=== PATIENT | female | born 1945 | race Caucasian/White ===

== ENCOUNTER 2024-02-13 19:07 | Inpatient (IN) | payer MEDICARE ==
[~2024-02-13] VITALS: Ht 157.5 cm; Wt 63.8 kg
[2024-02-13 19:33] LABS: BASOPHILS ABSOLUTE AUTO 0.05 K/mm3 (0.00-0.23); BASOPHILS PERCENT AUTO 0 % (0-2); EOSINOPHILS ABSOLUTE AUTO 0.01 K/mm3 (0.00-0.68); EOSINOPHILS PERCENT AUTO 0 % (0-6); Hematocrit 32.8 % (33.0-51.0); Hemoglobin 10.9 g/dL (11.5-16.0); IMMATURE GRAN ABSOLUTE AUTO 0.15 K/mm3 (0.00-0.10); IMMATURE GRAN PERCENT AUTO 1 % (0-1); LYMPHOCYTES ABSOLUTE AUTO 1.24 K/mm3 (0.84-5.20); LYMPHOCYTES PERCENT AUTO 9 % (21-46); MONOCYTES ABSOLUTE AUTO 0.57 K/mm3 (0.16-1.47); MONOCYTES PERCENT AUTO 4 % (4-13); Mean Corpuscular HGB 29.9 pg (26.0-34.0); Mean Corpuscular HGB Conc 33.2 g/dL (31.5-36.5); Mean Corpuscular Volume 90 fL (80-100); Mean Platelet Volume 9.3 fL (9.1-12.4); NEUTROPHILS ABSOLUTE AUTO 11.64 K/mm3 (1.96-9.15); NEUTROPHILS PERCENT AUTO 85 % (41-73); Platelet Count 260 K/mm3 (150-400); RDW Coefficient Variation 14.8 % (11.7-14.2); RDW Standard Deviation 48.9 fL (35.1-46.3); Red Blood Cell Count 3.65 M/mm3 (3.80-5.20); White Blood Cell Count 13.66 K/mm3 (4.00-11.30)
[2024-02-13 19:59] LABS: Albumin/Globulin Ratio 0.8 (0.8-1.8); Bilirubin, Total 0.5 mg/dL (0.1-1.0); Bun/Creatinine Ratio 8.8 (12.0-20.0); Creatinine, Blood 11.9 mg/dL (0.40-1.00); Potassium, Blood 6.8 mmol/L (3.5-5.5)
[2024-02-13 20:58] LABS: Source, Urine Straight Cath
[2024-02-13 21:03] LABS: Appearance, Urine Hazy (Clear); Bilirubin, Urine Neg (Neg); Blood, Urine 5+ (Neg); Color, Urine Yellow (P-Yellow); Glucose Qualitative, Urine Neg (Neg); Ketones, Urine Neg (Neg); Leukocyte Esterase, Urine 1+ (Neg); Nitrite, Urine Neg (Neg); Protein, Urine 3+ (Neg); Specific Gravity, Urine 1.015 (1.003-1.022); Urobilinogen, Urine NORM (Normal)
[2024-02-13 21:08] LABS: Amorphous Light (0-Heavy); Bacteria Few /hpf; Renal Epithelial Rare /hpf (0-Rare); Squamous Epithelial Cells Few /hpf (Few)
[2024-02-13] MEDS ORDERED: NS 1,000 ML IV SCH ×2 (22:25→23:09)
[2024-02-13] MEDS ORDERED: CefTRIAXone Sodium 1,000 MG in NS 50 ML IV ONE (22:25)
[2024-02-13] MEDS ORDERED: Ondansetron HCl 2 MG / ML 2ML Vial IV ONE (22:45)
[2024-02-13] MEDS ORDERED: Dextrose 50% 50 ML Syringe IV ONE ×2 (22:50→23:00)
[2024-02-13] MEDS ORDERED: Sodium Bicarb 8.4% Inj 150 MEQ in Dextrose 5% 1,000 ML IV SCH (22:55)
[2024-02-13] MEDS ORDERED: CALCIUM GLUC IN NACL, ISO-OSM 50 ML IV ONE (22:55)
[2024-02-13] MEDS ORDERED: Insulin Regular 100 Unit/ML 1ML Dose IV ONE (23:00)
[2024-02-13] MEDS ORDERED: Sodium Zirconium Cyclosilicate 10 GM Packet PO SCH (23:00)
[2024-02-13 23:30] VITALS: BP 125/52
[2024-02-13 23:45] VITALS: BP 95/38
[2024-02-13 23:50] VITALS: BP 95/40
[2024-02-14] VITALS (42 sets, daily range): BP systolic 81–140; BP diastolic 40–95
[2024-02-14 00:04] LABS: Calcium, Blood 8.9 mg/dL (8.5-10.1); Potassium, Blood 7.1 mmol/L (3.5-5.5)
[2024-02-14] MEDS ORDERED: Sodium Zirconium Cyclosilicate 10 GM Packet PO ONE (01:00)
[2024-02-14] MEDS ORDERED: Sodium Bicarb 8.4% 1 MEQ/ML 50 ML Vial IV ONE (01:00)
[2024-02-14 02:57] LABS: Albumin, Blood 2.3 g/dL (3.4-5.0); Anion Gap 22 mmol/L (3-11); Blood Urea Nitrogen 102 mg/dL (8-24); Bun/Creatinine Ratio 9.4 (12.0-20.0); CO2, Blood 18 mmol/L (21-32); Calcium, Blood 8.1 mg/dL (8.5-10.1); Chloride, Blood 100 mmol/L (98-108); Glomerular Filtration Rate 3 (60-); Glucose, Blood 142 mg/dL (70-99); Phosphorus, Blood 6.5 mg/dL (2.5-4.9); Potassium, Blood 6.1 mmol/L (3.5-5.5); Sodium, Blood 134 mmol/L (136-145)
--- NOTE | 2024-02-14 03:25 | NUR ---
ARRIVAL TO ICU PT ARRIVED TO ICU 2350 VIA ED BED AND TRANSFERED OVER TO ICU BED VIA SLIDE SHEET. SHE IS A/O X4 AND ABLE TO MAKE HER NEEDS KNOWN; LETHARGIC AND EASILY FALLS ALSEEP. SPO2 >96% ON RA. HR 70'S SINUS ARRHYTHMIA. SBP 120'S WITH MAP 65-70. DR KILGORE CALLED AND WAS GIVEN AN UPDATE ON LABS; NEW ORDERS PROVIDED. BICARB INFUSING AT 150ML/HR. SEE ADMISSION ASSESSMENT FOR FULL ASSESSMENT.
[2024-02-14 04:59] LABS: Albumin, Blood 2.5 g/dL (3.4-5.0); Anion Gap 23 mmol/L (3-11); Blood Urea Nitrogen 105 mg/dL (8-24); Bun/Creatinine Ratio 9.8 (12.0-20.0); CO2, Blood 17 mmol/L (21-32); Calcium, Blood 8.4 mg/dL (8.5-10.1); Chloride, Blood 100 mmol/L (98-108); Glomerular Filtration Rate 3 (60-); Glucose, Blood 150 mg/dL (70-99); Phosphorus, Blood 6.8 mg/dL (2.5-4.9); Potassium, Blood 5.8 mmol/L (3.5-5.5); Sodium, Blood 134 mmol/L (136-145)
[2024-02-14] MEDS ORDERED: Sodium Bicarb 8.4% Inj 150 MEQ in Dextrose 5% 1,000 ML IV SCH (06:35)
--- NOTE | 2024-02-14 07:06 | NUR ---
END OF SHIFT SUMMARY NO ACUTE EVENTS OVERNIGHT. PT CONT TO BE A/O X4 AND ABLE TO MAKE HER NEEDS KNOWN; VERY LITTLE AMOUNT OF SLEEP. SPO2 >95% ON RA. AFEBRILE. HR 70-80'S. SBP 110-120'S WHILE AWAKE WITH MAP >65. TOLERATING PO WATER WELL. NO URINE OUTPUT SINCE ARRIVAL TO ICU. DR KILGORE AT BEDSIDE AND PROVIDED NEW ORDERS. BICARB INFUSING AT 125ML/HR. REPORT GIVEN TO AM RN.
[2024-02-14] MEDS ORDERED: NS 500 ML IV ONE (08:50)
[2024-02-14] MEDS ORDERED: CefTRIAXone Sodium 1,000 MG in NS 100 ML IV SCH (10:00)
[2024-02-14 13:42] LABS: Albumin, Blood 2.3 g/dL (3.4-5.0); Anion Gap 18 mmol/L (3-11); Blood Urea Nitrogen 100 mg/dL (8-24); Bun/Creatinine Ratio 9.4 (12.0-20.0); CO2, Blood 22 mmol/L (21-32); Calcium, Blood 7.9 mg/dL (8.5-10.1); Chloride, Blood 97 mmol/L (98-108); Glomerular Filtration Rate 3 (60-); Glucose, Blood 168 mg/dL (70-99); Phosphorus, Blood 5.7 mg/dL (2.5-4.9); Sodium, Blood 132 mmol/L (136-145)
[2024-02-14] MEDS ORDERED: DEXTROMETHORPHAN/BENZOCAINE 1 EACH LOZENGE MT PRN (14:00)
[2024-02-14 15:37] LABS: Adenovirus Not Detected (NOT DETECT); Bordetella pertussis Not Detected (NOT DETECT); Chlamydophila pneumoniae Not Detected (NOT DETECT); Coronavirus 229E Not Detected (NOT DETECT); Coronavirus HKU1 Not Detected (NOT DETECT); Coronavirus NL63 Not Detected (NOT DETECT); Coronavirus OC43 Not Detected (NOT DETECT); Human Metapneumovirus Not Detected (NOT DETECT); Human Rhinovirus/Enterovirus Not Detected (NOT DETECT); Influenza A/2009-H1 Not Detected (NOT DETECT); Influenza A/H1 Not Detected (NOT DETECT); Influenza A/H3 Not Detected (NOT DETECT); Influenza B Not Detected (NOT DETECT); Mycoplasma pneumoniae Not Detected (NOT DETECT); Parainfluenza Virus 1 Not Detected (NOT DETECT); Parainfluenza Virus 2 Not Detected (NOT DETECT); Parainfluenza Virus 3 Not Detected (NOT DETECT); Parainfluenza Virus 4 Not Detected (NOT DETECT); Respiratory Syncytial Virus Not Detected (NOT DETECT); SARS-Cov-2 (COVID-19), BioFire Not Detected (NOT DETECT)
--- NOTE | 2024-02-14 16:44 | NUR ---
SHIFT SUMMARY NO ACUTE CHANGES THIS SHIFT. PT HAS REMAINED ALERT AND ORIENTED WHEN AWAKE. PT RESTING QUIETLY AT TIMES THIS AFTERNOON. PT HAS DENIED PAIN OR DISCOMFORT. PT HAS COMPLAINED OF A SORE THROAT. VITAL SIGNS HAVE REMAINED STABLE. PT ON ROOM AIR. BICARB GTT INFUSING AT 125 ML/HR. PT HAS NOT FELT THE URGE TO VOID THIS SHIFT. MULTIPLE FAMILY MEMBERS AT BEDSIDE THROUGHOUT THE DAY. WILL CONTINUE TO MONITOR AND REPORT OFF TO ONCOMING RN.
--- NOTE | 2024-02-14 21:08 | NUR ---
ASSUMED CARE PT IS A&O X4; SPO2 >92% ON 2LNC; MAP >65. PT DENIES CP AND NAUSEA. PT INITIALLY COMPLAINED OF MILD SOB, BUT HAS RESOLVED W/ APPLICATION OF 2LNC. PT STATED THAT SHE HAS BEEN TOLD SHE HAS COPD; USES OXYGEN AT HOME WHILE SLEEPING. PT STATES ONLY COMPLAINT AT THIS TIME IS FATIGUE. HAS NOT MADE ANY URINE AT TIME OF THIS NOTE. RESTING QUIETLY.
[2024-02-14] MEDS ORDERED: GLUCOPHAGE1000 M1 PO (22:02)
[2024-02-14] MEDS ORDERED: CLOP75 PO (22:02)
[2024-02-14] MEDS ORDERED: LISI5 PO (22:03)
[2024-02-14] MEDS ORDERED: ROSUVASTATIN CA40 MG PO (22:04)
[2024-02-14] MEDS ORDERED: AMLO5 PO (22:05)
[2024-02-14] MEDS ORDERED: ALLO100 PO (22:05)
[2024-02-14] MEDS ORDERED: EZET10 PO (22:06)
[2024-02-14] MEDS ORDERED: CALCIUM 600 MG1 EA18 PO (22:07)
[2024-02-14] MEDS ORDERED: FISH OIL 1,0001 EA10 PO (22:07)
[2024-02-14] MEDS ORDERED: MAGNESIUM OXID500 MG PO (22:08)
[2024-02-14] MEDS ORDERED: VITAMIN D5000 UNIT PO (22:08)
[2024-02-14 22:17] LABS: Albumin, Blood 2.4 g/dL (3.4-5.0); Anion Gap 16 mmol/L (3-11); Blood Urea Nitrogen 100 mg/dL (8-24); Bun/Creatinine Ratio 9.1 (12.0-20.0); CO2, Blood 27 mmol/L (21-32); Calcium, Blood 7.7 mg/dL (8.5-10.1); Chloride, Blood 93 mmol/L (98-108); Glomerular Filtration Rate 3 (60-); Glucose, Blood 171 mg/dL (70-99); Phosphorus, Blood 5.4 mg/dL (2.5-4.9); Potassium, Blood 4.6 mmol/L (3.5-5.5); Sodium, Blood 131 mmol/L (136-145)
[2024-02-14] MEDS ORDERED: NS 1,000 ML IV SCH (22:25)
[2024-02-14 22:46] LABS: Source, Urine Foley catheter
--- NOTE | 2024-02-14 22:56 | NUR ---
UPDATE DR KILGORE CALLED W/ ORDERS FOR ESPINOSA INSERTION AND CHANGE FLUIDS FROM SODIUM BICARB TO NORMAL SALINE INFUSION. NO OTHER ORDERS AT THIS TIME.
[2024-02-14 23:20] LABS: Appearance, Urine Clear (Clear); Bilirubin, Urine Neg (Neg); Blood, Urine 5+ (Neg); Color, Urine Amber (P-Yellow); Glucose Qualitative, Urine 1+ (Neg); Ketones, Urine Neg (Neg); Leukocyte Esterase, Urine Neg (Neg); Nitrite, Urine Neg (Neg); Protein, Urine 3+ (Neg); Urobilinogen, Urine NORM (Normal)
[2024-02-15] VITALS (9 sets, daily range): BP systolic 78–143; BP diastolic 49–71
[2024-02-15 00:32] LABS: Amorphous Light (0-Heavy); Bacteria Few /hpf; Red Blood Cells, Urine 0-2 /hpf (0-2); Squamous Epithelial Cells Few /hpf (Few); White Blood Cells, Urine 0-2 /hpf (0-5)
[2024-02-15 03:56] LABS: Hematocrit 26.6 % (33.0-51.0); Hemoglobin 9.2 g/dL (11.5-16.0)
[2024-02-15 04:40] LABS: Magnesium, Blood 2.9 mg/dL (1.6-2.4); Uric Acid, Blood 5.8 mg/dL (2.6-6.0)
[2024-02-15 04:53] LABS: Albumin, Blood 2.4 g/dL (3.4-5.0); Anion Gap 15 mmol/L (3-11); Blood Urea Nitrogen 104 mg/dL (8-24); Bun/Creatinine Ratio 9.5 (12.0-20.0); CO2, Blood 28 mmol/L (21-32); Calcium, Blood 7.6 mg/dL (8.5-10.1); Chloride, Blood 94 mmol/L (98-108); Glomerular Filtration Rate 3 (60-); Glucose, Blood 98 mg/dL (70-99); Phosphorus, Blood 5.5 mg/dL (2.5-4.9); Potassium, Blood 4.7 mmol/L (3.5-5.5); Sodium, Blood 132 mmol/L (136-145)
--- NOTE | 2024-02-15 05:15 | NUR ---
SHIFT SUMMARY PT RESTED/SLEPT QUIETLY T/O NIGHT. NO NEW COMPLAINTS FROM PT. EARLIER IN NIGHT LIFT WAS USED TO ASSIST PT TO BEDSIDE COMMODE; WAS ABLE TO STAND AND PIVOT TO BED WITH WALKER AFTER. NO ACUTE EVENTS OVERNIGHT.
--- NOTE | 2024-02-15 06:24 | NUR ---
UPDATE PT TO BE MOVED TO U 11. DAUGHTER BIRGIT NOTIFIED (W/ PT'S PERMISSION); BIRGIT STATED SHE WILL NOTIFY SON ESTEBAN.
--- NOTE | 2024-02-15 06:46 | NUR ---
SHIFT SUMMARY REPORT GIVEN TO PCU NURSE AND PT TRANSFERRED W/ MEDS AND BELONGINGS.
[2024-02-15] MEDS ORDERED: Sodium Bicarb 8.4% Inj 150 MEQ in Dextrose 5% 1,000 ML IV SCH (07:00)
[2024-02-15] MEDS ORDERED: HYDROCODONE-AC1 EA19 PO (07:36)
[2024-02-15] MEDS ORDERED: Cyclobenzaprine5 MG PO (07:37)
[2024-02-15] MEDS ORDERED: HYDROcodone 5-APAP 325 TAB PO PRN (09:50)
[2024-02-15] MEDS ORDERED: Ondansetron HCl 2 MG / ML 2ML Vial IV PRN (09:50)
[2024-02-15] MEDS ORDERED: Allopurinol 100 MG Tab PO SCH (10:00)
[2024-02-15] MEDS ORDERED: Clopidogrel Bisulfate 75 MG Tab PO SCH (10:00)
[2024-02-15] MEDS ORDERED: Insulin Human Lispro 100 Units/ML 3ML Syringe SC SCH (11:30)
--- NOTE | 2024-02-15 15:55 | NUR ---
ASSUMPTION OF CARE AND TRANSFER TO MEDICAL UNIT: ASSUMED CARE OF PATIENT AT 1255. PATIENT DENIED PAIN THROUGHOUT THE TIME WITH THIS RN. PATIENT ALERT AND ORIENTED X4. NO SLURRING OF SPEECH NOTED. PATIENT FOLLOWING DIRECTIONS AND CONVERSING NORMALLY WITH HER FAMILY. ESPINOSA IN PLACE AND DRAINING ERROL COLORED URINE. ESPINOSA AND 24 HOUR COLLECTION JUG ON ICE. PATIENT DENIED NAUSEA FROM ASSUMPTION OF CARE TO TRANSFER TO MEDICAL. VITALS STABLE WITH MAPS >65. ABLE TO TITRATE O2 DOWN TO 1.5L VIA NC. REPORT CALLED TO MEDICAL FLOOR. FAMILY AWARE OF TRANSFER. ALL QUESTIONS AND CONCERNS ADDRESSED. PATIENT TRANSFERED TO ROOM 332 WITH COATING MIXER TENDER. PATIENT STABLE AT TIME OF TRANSFER.
[2024-02-15] MEDS ORDERED: Darbepoetin Alfa in Polysorbat 25 MCG/0.42 ML Syringe SC SCH (16:00)
--- NOTE | 2024-02-15 16:45 | NUR ---
TRANSFERRED NOTE: PATIENT ARRIVES TO ROOM VIA BED AT 1600 FROM PCU RM 11. PATIENT A/OX4, ANSWER TO QUESTIONS APPROPRIATELY AND ABLE TO MAKE NEEDS KNOWN. PATIENT ORIENTATED TO ROOM AND CALL SYSTEM. SKIN ASSESSMENT c 2 RN'S VERIFIED COMPLETED. PATIENT DENIES CP/PRESSURE, N/V, DIZZINESS AND GENERALIZED PAIN, WHEN ASKED AT THIS TIME. PATIENT ON TELE, SR c OCCASIONAL PAC, HR AT 79 BPM. PATIENT SKIN TIGHT DEPENDENT GENERALIZED EDEMA FROM ABDOMEN DOWN TO KNEE, BELOW KNEE TO FEET PLUS 2, PLUS 1 TO R ARM AND TRACES OF EDEMA TO L ARM. SCD'S TO BLE'S IN PLACED. PATIENT AT BASELINE WEARS 2L O2 AT HS, CURRENTLY ON 2L c SPO2 95-96%. PATIENT HAS PIV TO R FOREARM INFUSING SODIUM BICARB AT 50 MLS/HR. PATIENT HAS ESPINOSA, PATENT DRAINING ERROL COLOR URINE TO GRAVITY, ESPINOSA BAG SOAKED IN ICE FOR 24 HR. URINE COLLECTION AND NEEDED TO BE TURN IN AT 2200 02/15/24. PATIENT REPOSITIONED TO R SIDE, BLE ELEVATED ON PILLOWS. PATIENT HAS NO COMPLAINTS OR DENIES NEW CONCERNED AT THIS TIME. CALL LIGHT IN REACH.
[2024-02-15 19:15] LABS: Albumin, Blood 2.1 g/dL (3.4-5.0); Anion Gap 18 mmol/L (3-11); Blood Urea Nitrogen 100 mg/dL (8-24); Bun/Creatinine Ratio 8.6 (12.0-20.0); CO2, Blood 28 mmol/L (21-32); Calcium, Blood 6.9 mg/dL (8.5-10.1); Chloride, Blood 90 mmol/L (98-108); Glomerular Filtration Rate 3 (60-); Glucose, Blood 114 mg/dL (70-99); Phosphorus, Blood 5.7 mg/dL (2.5-4.9); Potassium, Blood 4.5 mmol/L (3.5-5.5); Sodium, Blood 131 mmol/L (136-145)
[2024-02-15] MEDS ORDERED: Ezetimibe 10 MG Tab PO SCH (21:00)
[2024-02-15 23:59] LABS: Protein, Urine Quantitative 300.2 mg/dL (0.0-11.9)
[2024-02-16] VITALS (11 sets, daily range): BP systolic 108–141; BP diastolic 51–73
--- NOTE | 2024-02-16 04:24 | NUR ---
SHIFT SUMMARY PT.HAS INDWELLING ESPINOSA, 24URINE COMPLETED BEFORE 2300 AND SENT TO LAB. PT.DENIES N/V OR DISCOMFORT. CB.TELE;SINUS 83.CRITICAL LAB CRE:11.60 RECEIVED FROM LAB AT -NOTIFIED OVER THE PHONE BY THIS NURSE.PT.HAS LE AND ABDOMINAL AREA EDEMA +1-2. PT.DENIES ANY PAIN OR SOB, 02 VIA NC 2L @100% SAT'S. NO ACUTE DISTRESS/EVENTS DURING THIS SHIFT.WILL HANDOFF TO THE INCOMING SHIFT NURSE. BED AT LOWEST POSITION, CALL LIGHT IN REACH.
[2024-02-16] MEDS ORDERED: Sodium Bicarb 8.4% Inj 150 MEQ in Dextrose 5% 1,000 ML IV SCH (05:35)
[2024-02-16] MEDS ORDERED: Bumetanide 0.25 MG/ML 10ML Vial IV ONE ×2 (06:25→08:25)
--- NOTE | 2024-02-16 06:29 | NUR ---
PER 'S VERBAL ORDER: "BUMEX 2MG IV NOW, REPEAT DOSE IN TWO HOURS." ORDER ENTERED BY THIS NURSE. DR. KILGORE BY BEDSIDE.
[2024-02-16 06:53] LABS: Hematocrit 27.8 % (33.0-51.0); Hemoglobin 9.7 g/dL (11.5-16.0)
[2024-02-16 07:25] LABS: Magnesium, Blood 2.7 mg/dL (1.6-2.4)
[2024-02-16 07:29] LABS: Albumin, Blood 2.2 g/dL (3.4-5.0); Anion Gap 13 mmol/L (3-11); Blood Urea Nitrogen 100 mg/dL (8-24); CO2, Blood 32 mmol/L (21-32); Calcium, Blood 6.7 mg/dL (8.5-10.1); Chloride, Blood 88 mmol/L (98-108); Glucose, Blood 108 mg/dL (70-99); Phosphorus, Blood 5.5 mg/dL (2.5-4.9); Potassium, Blood 4.3 mmol/L (3.5-5.5); Sodium, Blood 129 mmol/L (136-145)
[2024-02-16 07:32] LABS: Bun/Creatinine Ratio 8.3 (12.0-20.0); Glomerular Filtration Rate 3 (60-)
[2024-02-16] MEDS ORDERED: Cholecalciferol 1000 Unit Tablet (=25MCG) PO SCH (09:00)
[2024-02-16] MEDS ORDERED: Docosahexanoic Acid/EPA 1,000 MG CAP PO SCH (09:00)
--- NOTE | 2024-02-16 15:06 | NUR ---
SHIFT SUMMARY PT SLEEPING AT START OF SHIFT. WOKE EASILY FOR REPORT, BUT HAS REMAINED SLEEPY AND LETHARGIC. LAB CALLED WITH CRITICAL CREATININE DURING SHIFT REPORT. DR KILGORE NOTIFIED BY [facility] RN. ORDERS PLACED FOR [facility] [place] CONSULT TO PLACE PERMA CATH FOR DIALYSIS. FAX SHEET SENT TO [facility] OFFICE AND CONSULT CALLED TO ANS; SEE CHART. PT HAS BEEN NPO SINCE ORDERS PLACED THIS AM, WAITING FOR PROCEDURE. PT'S DAUGHTER IN TO VISIT THIS AM AND RETURNED AGAIN THIS AFTERNOON. DR KILGORE NOTIFIED THIS AM REGARDING 2ND ORDER FOR 24 HR URINE. BENEFITS ADMINISTRATOR IN TO TALK WITH PT EARLIER TODAY. PT THEN DECIDING NOT TO HAVE DIALYSIS. DR KILGORE CALLED PT IN . PT THEN AGREEABLE TO CONTINUE WITH PERMA CATH PLACEMENT FOR DIALYSIS. RESTING QUIETLY WAITNG IN BED WITH DAUGHTER AT BS. CALL LT IN REACH.
[2024-02-16] MEDS ORDERED: Heparin Sodium 1000 Units/ML 10ML MDV ONE (17:58)
[2024-02-16] MEDS ORDERED: NS 250 ML IV ONE (17:58)
[2024-02-16] MEDS ORDERED: Midazolam HCl 1MG / ML 2ML Vial ONE (18:04)
[2024-02-16] MEDS ORDERED: FentaNYL Citrate 50 MCG/ML 2 ML Injection ONE (18:04)
[2024-02-16] MEDS ORDERED: NS 500 ML IV ONE (18:04)
[2024-02-16] MEDS ORDERED: Heparin Sodium 10,000 Units/ML 1ML MDV ONE ×2 (18:45→18:47)
[2024-02-17] VITALS (17 sets, daily range): BP systolic 88–149; BP diastolic 40–63
--- NOTE | 2024-02-17 05:05 | NUR ---
SHIFT SUMMARY APPROXIMATELY 1999, PT.RETURNED FROM IR AND HAS A PERMCATH ON RIGHT UPPER AREA OF THE CHEST. VS AND NEURO CHECKS COMPLETED ORDERED. PT. IS A&O X3-4, AND RESTING WELL T/O THE CLIENT ARCHITECT. SODIUM BICARB INFUSING ORDERED. 1X NORCO 5/325MG ADMINISTERED ORDERED FOR C/O 5/10WORST RIGHT UPPER AREA/ SHOULDER PAIN. PT IS ON O2@2L VIA NC, O2 SAT'S 98%. 24HR URINE COLLECTION/ESPINOSA BAG IN ICE T/O THIS SHIFT. HS B. TELE:SINUS 77. NO ACUTE DISTRESS/EVENTS T/O THIS SHIFT. BED AT THE LOWEST POSITION, CALL LIGHT IN REACH. WILL HANDOFF TO THE INCOMING SHIFT NURSE.
[2024-02-17 05:15] LABS: Hematocrit 23.5 % (33.0-51.0)
[2024-02-17 05:48] LABS: Magnesium, Blood 2.6 mg/dL (1.6-2.4)
[2024-02-17 06:03] LABS: Albumin, Blood 1.9 g/dL (3.4-5.0); Anion Gap 15 mmol/L (3-11); Blood Urea Nitrogen 112 mg/dL (8-24); CO2, Blood 32 mmol/L (21-32); Calcium, Blood 6.5 mg/dL (8.5-10.1); Chloride, Blood 86 mmol/L (98-108); Glucose, Blood 114 mg/dL (70-99); Phosphorus, Blood 6.4 mg/dL (2.5-4.9); Potassium, Blood 4.5 mmol/L (3.5-5.5); Sodium, Blood 128 mmol/L (136-145)
[2024-02-17 06:14] LABS: Bun/Creatinine Ratio 9.2 (12.0-20.0); Glomerular Filtration Rate 3 (60-)
--- NOTE | 2024-02-17 06:40 | NUR ---
CRITICAL LAB VALUE (FROM [email or web address] AT 0612. CREATININE 12.2 THIS NURSE NOTIFIED OVER THE PHONE, DR. KILGORE ASKED TO CONTACT AND SET UP DIALYSIS FOR THE PT. FOR TODAY. THIS BREAD BAKER CALLED DIALYSIS NURSE AND M @4573 TO NUMBER: [phone]. CUTTING AND PRINTING MACHINE OPERATOR NOTIFIED.
[2024-02-17] MEDS ORDERED: Anticoagulant Sod Citrate Soln 3 ML SYR INJ PRN (08:00)
[2024-02-17 09:03] LABS: Protein, Urine Quantitative 117.7 mg/dL (0.0-11.9)
--- NOTE | 2024-02-17 13:36 | NUR ---
PATIENT LEFT UNIT AT 0850 FOR DIALYSIS. AM MEDICATIONS HELD UNTIL PATIENT RETURNED AT 1145 TO ROOM.
[2024-02-17 17:11] LABS: HEPATITIS B SURFACE ANTIGEN Negative (Negative)
[2024-02-17 17:15] LABS: HEPATITIS B SURFACE ANTIBODY <3.10 IU/L
[2024-02-17 17:44] LABS: HBV CORE ANTIBODIES,TOTAL Negative (Negative)
[2024-02-17] MEDS ORDERED: FORMOTEROL20 MCG/2 M INH (17:48)
[2024-02-17] MEDS ORDERED: YUPELRI175 MCG/1 (17:48)
[2024-02-17] MEDS ORDERED: BUDE.25 INH (17:49)
[2024-02-17] MEDS ORDERED: Ipratropium/Albuterol SulF 2.5-0.5MG/3 ML Amp INH PRN (18:05)
--- NOTE | 2024-02-17 18:38 | NUR ---
SHIFT SUMMARY PATIENT WITH NO ACUTE EVENTS DURING SHIFT. SHE IS RESTING IN BED AFTER DIALYSIS BUT WAKES EASILY TO VERBAL STIMULATION. PATIENT GIVEN BED BATH AND ASSISTED UP TO EDGE OF BED. HELD UP WITH ASSISTANCE FOR APPROX 1 MINUTE. PATIENT ASSISTED BACK TO BED AND REPOSITIONED TO LEFT SIDE LYING. BED IN LOW POSITION, CALL LIGHT IN REACH PATIENT ABLE TO MAKE NEEDS KNOWN.
[2024-02-17] MEDS ORDERED: Budesonide 0.5 MG/2 ML RESP INH SCH (21:00)
[2024-02-17 21:10] LABS: GBM, IGG MULTIPLEX BEAD ASSAY 0 AU/mL (0-19); MYELOPEROXIDASE (MPO) AB,IGG 0 AU/mL (0-19); SERINE PROTEINASE 3 PR3 AB,IGG 0 AU/mL (0-19)
[2024-02-18] VITALS (16 sets, daily range): BP systolic 93–144; BP diastolic 34–64
[2024-02-18 03:57] LABS: ANA PATTERN Nuclear Dot; ANTINUCLEAR AB (ANA),HEP-2,IGG Detected (<1:80)
--- NOTE | 2024-02-18 04:57 | NUR ---
SHIFT SUMMARY NOC PT A/O X 3-4. PLEASANT AND COOPERATIVE WITH CARE. VSS. BEDTIME CBG 174 WITH CNI. PT HAS DIALYSIS PERM CATH IN [facility] THAT WAS PLACED 02/16/24 AND DRESSING C/D/I AND SITE IS WN. PT ON O2 2L/NC SPO2 >92%. PT HAD DIALYSIS YESTERDAY AND ANTICIPATING ANOTHER ROUND OF DIALYSIS TODAY. PT HGB 8.0 YESTERDAY, AWAITING AM LABS FOR ANY CHANGES. PT HAD C/O OF RUW PAIN FROM DIALYSIS CATHETER PLACEMENT, AND MEDICATED PER EMAR. PT HAS ESPINOSA IN PLACE DRAINING TO GRAVITY. ON TELE SINUS RHYTHM IN 70'S. PT CURRENTLY RESTING WITH BED IN LOWEST POSITION, AND CALL LIGHT WITHIN REACH.
[2024-02-18 05:25] LABS: Hematocrit 23.2 % (33.0-51.0); Hemoglobin 7.9 g/dL (11.5-16.0)
[2024-02-18 06:21] LABS: Magnesium, Blood 2.5 mg/dL (1.6-2.4)
[2024-02-18 06:32] LABS: GBM, IGG MULTIPLEX BEAD ASSAY 0 AU/mL (0-19)
[2024-02-18 06:32] LABS: MYELOPEROXIDASE (MPO) AB,IGG 0 AU/mL (0-19); SERINE PROTEINASE 3 PR3 AB,IGG 0 AU/mL (0-19)
[2024-02-18 06:35] LABS: Albumin, Blood 1.9 g/dL (3.4-5.0); Anion Gap 12 mmol/L (3-11); Blood Urea Nitrogen 73 mg/dL (8-24); Bun/Creatinine Ratio 7.9 (12.0-20.0); CO2, Blood 32 mmol/L (21-32); Calcium, Blood 6.6 mg/dL (8.5-10.1); Chloride, Blood 93 mmol/L (98-108); Glomerular Filtration Rate 4 (60-); Glucose, Blood 128 mg/dL (70-99); Sodium, Blood 133 mmol/L (136-145)
[2024-02-18 15:35] LABS: ANA PATTERN Nuclear Dot; ANTINUCLEAR AB (ANA),HEP-2,IGG Detected (<1:80)
--- NOTE | 2024-02-18 17:54 | NUR ---
SHIFT SUMMARY PATIENT ALERT AND INTERACTIVE. PATIENT TAKEN TO DIALYSIS VIA BED THIS MORNING. PATIENT RETURNED FROM DIALYSIS VIA BED. PATIENT WANTING TO GET UP TO HAVE A BM. PATIENT STOOD AT SIDE OF BED, THEN REFUSED TO TRANSFER TO THE COMMODE BECAUSE SHE SAID HER CALVES HURT. PATIENT REQUESTING TO USE BED ANTHONY. PATIENT ENCOURAGED TO MOBILIZE. PATIENT REFUSING AND STATING THAT SHE JUST CAN'T. PT TO EVALUATE PATIENT. PATIENT MEDICATED X1 FOR SHOULDER PAIN DURING DIALYSIS.
[2024-02-19] VITALS (14 sets, daily range): BP systolic 110–188; BP diastolic 57–83
--- NOTE | 2024-02-19 05:11 | NUR ---
SHIFT SUMMARY NOC PT A/O X 4. PLEASANT AND COOPERATIVE WITH CARE. VSS. PT SLEPT FOR MAJORITY OF SHIFT. PT HAD DIALYSIS LAST 2 DAYS. PROBABLE DIALYSIS TREATMENT TODAY. PT HAS DIALYSIS PERM CATH IN [facility] PLACED 3 DAYS AGO. PT HAS ESPINOSA IN PLACE DRAINING TO GRAVITY. ON TELE SINUS RHYTHM IN 80'S. PER DAY RN REPORT PT RECOMMENDED TO GO TO SNF FOR REHAB, BUT FAMILY WANT PT TO GO HOME WITH HOME HEALTH. PT EVENING ZETIA HELD DUE TO PT BEING TOO SOMNULENT FOR SAFE RX ADMINISTRATION. HGB 7.9 YESTERDAY, AWAITING AM LABS FOR POSSIBLE TRANSFUSION THRESHOLD TO BE MET. PT ON 2L/NC SPO2 >92%. PT CURRENTLY RESTING WITH BED IN LOWEST POSITION, AND CALL LIGHT WITHIN REACH.
[2024-02-19 05:26] LABS: Hemoglobin 8.3 g/dL (11.5-16.0)
[2024-02-19 05:56] LABS: Albumin, Blood 2.1 g/dL (3.4-5.0); Anion Gap 9 mmol/L (3-11); Blood Urea Nitrogen 44 mg/dL (8-24); Bun/Creatinine Ratio 7.2 (12.0-20.0); CO2, Blood 33 mmol/L (21-32); Calcium, Blood 7.1 mg/dL (8.5-10.1); Chloride, Blood 99 mmol/L (98-108); Glomerular Filtration Rate 7 (60-); Glucose, Blood 119 mg/dL (70-99); Magnesium, Blood 2.3 mg/dL (1.6-2.4); Phosphorus, Blood 2.8 mg/dL (2.5-4.9); Potassium, Blood 3.7 mmol/L (3.5-5.5); Sodium, Blood 137 mmol/L (136-145)
[2024-02-19] MEDS ORDERED: Polyethylene Glycol 3350 17 gm PO PRN (14:10)
[2024-02-19] MEDS ORDERED: Docusate Sodium 100 MG Cap PO SCH (15:00)
--- NOTE | 2024-02-19 17:49 | NUR ---
SHIFT SUMMARY: PT HAS BEEN A&Ox4, ANSWERS QUESTIONS APPROPRIATELY, ABLE TO MAKE NEEDS KNOWN. PT IS LETHARGIC, SLEEPS WHEN ALONE IN ROOM. PT DENIES SOB. PT DENIES CHEST PAIN/PRESSURE, SR ON MONITOR W/RATE IN 90s. PT TO/FROM DIALYSIS THIS SHIFT. INDWELLING ESPINOSA PATENT, DRAINING TO GRAVITY, MINIMAL UO. BM THIS SHIFT. PT 1-2 ASSIST W/FWW AND GB, SPENDS THE AFTERNOON IN BEDSIDE CHAIR, TOLERATES WELL. WILL CONTINUE TO MONITOR AND TREAT ACCORDINGLY UNTIL CHANGE OF SHIFT.
--- NOTE | 2024-02-19 22:28 | NUR ---
ASSUMED CARE WHILE PRIMARY NURSE TOOK BREAK. PT DENIES NEEDS AT THIS TIME, CALL LIGHT WITHIN REACH.
[2024-02-19] MEDS ORDERED: FERSU300 PO (22:58)
[2024-02-20] VITALS (17 sets, daily range): BP systolic 121–170; BP diastolic 52–83
--- NOTE | 2024-02-20 01:23 | NUR ---
ASSUMED CARE FOR PRIMARY NURSE DURING BREAK. MEDICATED PT PER EMAR FOR HER CHRONIC LOWER BACK PAIN THAT WAS 7/10. PT SAID AN ACCEPTABLE PAIN LEVEL WOULD BE 5/10. PT RESTING IN BED WITH TV ON AND CALL LIGHT WITHIN REACH.
--- NOTE | 2024-02-20 04:39 | NUR ---
ASSUMED CARE OF PT WHILE PRIMARY RN ON BREAK. PT DENIES NEEDS AT THIS TIME AND CALL LIGHT WITHIN REACH.
[2024-02-20 05:11] LABS: Hematocrit 23.4 % (33.0-51.0); Hemoglobin 7.9 g/dL (11.5-16.0)
--- NOTE | 2024-02-20 05:36 | NUR ---
SHIFT SUMMARY NOC PT A/O X 4. PLEASANT AND COMMUNICATES NEEDS APPROPRIATELY. VSS. NO ACUTE CHANGES TO REPORT. [facility]. ESPINOSA IN PLACE DRAINING TO GRAVITY. ON TELE RUNNING SINUS RHYTHM IN 80'S. NO ORDER FOR DIALYSIS SEEN YET, BUT PT PROBABLY WILL HAVE ANOTHER SESSION TODAY WHEN AGENT CONTRACT CLERK SEES PT AM LABS. PT CHRONIC BACK PAIN MANAGED PER EMAR. PT CURRENTLY RESTING WITH BED IN LOWEST POSITION, AND CALL LIGHT WITHIN REACH.
[2024-02-20 06:18] LABS: Albumin, Blood 2.1 g/dL (3.4-5.0); Anion Gap 10 mmol/L (3-11); Blood Urea Nitrogen 34 mg/dL (8-24); Bun/Creatinine Ratio 7.3 (12.0-20.0); CO2, Blood 31 mmol/L (21-32); Calcium, Blood 7.3 mg/dL (8.5-10.1); Chloride, Blood 102 mmol/L (98-108); Creatinine, Blood 4.64 mg/dL (0.40-1.00); Glomerular Filtration Rate 9 (60-); Glucose, Blood 129 mg/dL (70-99); Magnesium, Blood 2.3 mg/dL (1.6-2.4); Phosphorus, Blood 1.8 mg/dL (2.5-4.9); Potassium, Blood 3.5 mmol/L (3.5-5.5); Sodium, Blood 139 mmol/L (136-145)
[2024-02-20] MEDS ORDERED: Anticoagulant Sod Citrate Soln 3 ML SYR INJ PRN (08:05)
--- NOTE | 2024-02-20 08:29 | NUR ---
PATIENT TRANSPORTED TO DIALYSIS BY THIS RN AND LOVE [facility] CNA @ 9144.
[2024-02-21] VITALS (12 sets, daily range): BP systolic 137–170; BP diastolic 54–77
--- NOTE | 2024-02-21 04:50 | NUR ---
SHIFT SUMMARY: Pt is admitted for hyperkalemia and is a full code. Is alert and able to make needs known. ADLs have been 1p but did not get out of bed during shift. Denies pain or discomfort when asked. Perma cath to upper right chest intact with dressing that is CDI. folly intact and draining dark parker urine.
[2024-02-21 05:25] LABS: Hematocrit 23.1 % (33.0-51.0); Hemoglobin 7.6 g/dL (11.5-16.0)
[2024-02-21 05:43] LABS: Albumin, Blood 2.1 g/dL (3.4-5.0); Anion Gap 7 mmol/L (3-11); Blood Urea Nitrogen 31 mg/dL (8-24); Bun/Creatinine Ratio 7.9 (12.0-20.0); CO2, Blood 33 mmol/L (21-32); Calcium, Blood 7.1 mg/dL (8.5-10.1); Chloride, Blood 102 mmol/L (98-108); Creatinine, Blood 3.92 mg/dL (0.40-1.00); Glomerular Filtration Rate 11 (60-); Glucose, Blood 113 mg/dL (70-99); Magnesium, Blood 2.2 mg/dL (1.6-2.4); Phosphorus, Blood 1.2 mg/dL (2.5-4.9); Potassium, Blood 3.3 mmol/L (3.5-5.5); Sodium, Blood 139 mmol/L (136-145)
[2024-02-21] MEDS ORDERED: Potassium Phosphate Dibasic 20 MM in Dextrose 5% 500 ML IV ONE (06:45)
[2024-02-21] MEDS ORDERED: NS 250 ML IV PRN (07:30)
[2024-02-21] MEDS ORDERED: Anticoagulant Sod Citrate Soln 3 ML SYR INJ PRN (07:55)
[2024-02-21] MEDS ORDERED: Potassium Chloride 20 MEQ TabCR PO ONE (09:00)
[2024-02-21] MEDS ORDERED: IPRAT-ALBUT 0.5-3 ML INH (12:43)
[2024-02-21] MEDS ORDERED: MIRALAX17 GM PO (12:44)
--- NOTE | 2024-02-21 17:35 | NUR ---
SHIFT SUMMARY PT HAD HD THIS MORNING. TOLERATED WELL. SLEPT A LOT OF THE DAY AFTERWARD. ESPINOSA CATH REMOVED TODAY AT 1110. PT HAS NOT VOIDED YET, BLADDER SCANNED WITH NO VOLUME IN BLADDER. FLUID RESTRICTION OF 1L STARTED TODAY. PT HAS ONLY DRANK 390ML SO FAR. PT ENCOURAGED TO DRINK UP TO THE 1L LU[place] BY THE END OF THE DAY. FAMILY IN ROOM THIS AFTERNOON. PT & FAMILY PREFERING [facility] [place] IS POSSIBLE, OTHERWISE THEY WANT TO TAKE HER HOME WITH HOME HEALTH TOMORROW AFTER DIALYSIS. PT HAS A CHAIR TIME A [facility] FOR 1525 ON FRIDAY 02/23. NO OTHER CHANGES IN ASSESSMENT AT THIS TIME. VS REVIEWED. CALL LIGHT IN REACH. DENIES OTHER NEED AT THIS TIME.
[2024-02-21 20:10] LABS: ALPHA-1 %,URINE 5.7 %; ALPHA-2 %,URINE 9.6 %; BETA GLOBULIN %,URINE 23.6 %; GAMMA GLOBULIN %,URINE 10.1 %; HOURS COLLECTED Not Provided hr; TOTAL VOLUME Not Provided mL
[2024-02-22] VITALS (10 sets, daily range): BP systolic 142–164; BP diastolic 52–70
--- NOTE | 2024-02-22 06:07 | NUR ---
Patient alert and oriented x4, resting comfortably in bed majority of night, tolerating room air appropriately. Patient did not have any urine output overnight, bladder scan revealed 23 mL after bocanegra removed during day shift. One dose of PRN pain medication needed overnight, see eMAR.
[2024-02-22 06:14] LABS: Albumin, Blood 2.2 g/dL (3.4-5.0); Anion Gap 9 mmol/L (3-11); Blood Urea Nitrogen 30 mg/dL (8-24); Bun/Creatinine Ratio 7.6 (12.0-20.0); CO2, Blood 32 mmol/L (21-32); Calcium, Blood 7.4 mg/dL (8.5-10.1); Chloride, Blood 101 mmol/L (98-108); Creatinine, Blood 3.95 mg/dL (0.40-1.00); Glomerular Filtration Rate 11 (60-); Glucose, Blood 113 mg/dL (70-99); Magnesium, Blood 2.1 mg/dL (1.6-2.4); Potassium, Blood 3.8 mmol/L (3.5-5.5); Sodium, Blood 138 mmol/L (136-145)
[2024-02-22] MEDS ORDERED: Sodium Phosphate 10 MM in Dextrose 5% 250 ML IV STA (06:38)
[2024-02-22] MEDS ORDERED: Anticoagulant Sod Citrate Soln 3 ML SYR INJ PRN (08:05)
[2024-02-22 08:47] LABS: Percent Saturation 17.6 % (15.0-50.0)
[2024-02-22] MEDS ORDERED: Darbepoetin Alfa in Polysorbat 25 MCG/0.42 ML Syringe SC ONE (16:00)
[2024-02-24 11:07] LABS: COMPLEMENT COMPONENT 3 143 mg/dL (90-180)
[2024-02-24 11:26] LABS: SMITH (ENA) ANTIBODY, IGG 0 AU/mL (0-40)
[2024-02-24 14:12] LABS: COMPLEMENT COMPONENT 4 25 mg/dL (10-40)
[2024-02-24 16:40] LABS: DOUBLE-STRANDED DNA IGG ELISA 6 IU (0-24)
== END 2024-02-22 13:53 | disposition home health service (06) | DRG 557 ==
LOC: ER 19:07 → ICUE 23:28 → MEDS 23:28 → PCU 02-15 06:35 → MEDS 02-15 15:57
PROVIDERS: Internal Medicine; Internal Medicine Nephrology; Physician Assistant; Student in an Organized Health Care Education/Training Program; ADMIT Internal Medicine
PROC: 0JH63XZ Insertion of Tunneled Vascular Access Device into Chest Subcutaneous Tissue and Fascia, Percutaneous Approach (ICD-10-PCS; 2024-02-16)
PROC: 02HV33Z Insertion of Infusion Device into Superior Vena Cava, Percutaneous Approach (ICD-10-PCS; 2024-02-16)
PROC: 5A1D70Z Performance of Urinary Filtration, Intermittent, Less than 6 Hours Per Day (ICD-10-PCS; principal; 2024-02-17)
DX: M62.82 Rhabdomyolysis (principal); N17.0 Acute kidney failure with tubular necrosis; N18.6 End stage renal disease; E87.20 Acidosis, unspecified; E87.1 Hypo-osmolality and hyponatremia; N39.0 Urinary tract infection, site not specified; Z99.2 Dependence on renal dialysis; E87.5 Hyperkalemia; E86.0 Dehydration; E87.6 Hypokalemia; E83.39 Other disorders of phosphorus metabolism; R74.01 Elevation of levels of liver transaminase levels; E83.42 Hypomagnesemia; E11.22 Type 2 diabetes mellitus with diabetic chronic kidney disease; D63.1 Anemia in chronic kidney disease; R47.1 Dysarthria and anarthria; M54.9 Dorsalgia, unspecified; G89.29 Other chronic pain; K59.00 Constipation, unspecified; E78.5 Hyperlipidemia, unspecified; M10.9 Gout, unspecified; J44.9 Chronic obstructive pulmonary disease, unspecified; D50.9 Iron deficiency anemia, unspecified; Z88.5 Allergy status to narcotic agent; Z88.8 Allergy status to other drugs, medicaments and biological substances; E83.51 Hypocalcemia
CPT/HCPCS: 0202U; 36415; 51701; 51703; 70450; 71045; 74176; 76937; 80048; 80053; 80069; 81001; 81050; 82550; 82607; 82728; 82746; 82947; 83516; 83540; 83550; 83605; 83735; 84156; 84166; 84550; 85014; 85018; 85025; 86039; 86160; 86225; 86235; 86334; 86335; 86704; 87040; 87081; 87086; 87340; 87430; 93005; 93010; 93306; 94640; 94664; 94760; 94762; 97110; 97116; 97161; 97165; 97530; 97535; 99152; 99285-25; A9270; C1750; C1769; C1894; J0612; J0696; J0881; J1644; J1815; J2250; J2405; J3010; J7030; J7040; J7050; J7060; J7070

== ENCOUNTER → 2024-02-24 | Outpatient (CLI) | payer MEDICARE ==
[~2024-02-24] MED LIST: ALLO100 PO; AMLO5 PO; BUDE.25 INH; CALCIUM 600 MG1 EA18 PO; CLOP75 PO; Cyclobenzaprine5 MG PO; EZET10 PO; FERSU300 PO; FISH OIL 1,0001 EA10 PO; FORMOTEROL20 MCG/2 M INH; GLUCOPHAGE1000 M1 PO; HYDROCODONE-AC1 EA19 PO; IPRAT-ALBUT 0.5-3 ML INH; LISI5 PO; MAGNESIUM OXID500 MG PO; MIRALAX17 GM PO; ROSUVASTATIN CA40 MG PO; VITAMIN D5000 UNIT PO; YUPELRI175 MCG/1
== END ==
LOC: LAB SHORT 17:22 → LAB 17:22
DX: D64.9 Anemia, unspecified (principal)
CPT/HCPCS: 85018

== ENCOUNTER → 2024-03-27 | Outpatient (CLI) | payer MEDICARE ==
[2024-03-27 16:42] LABS: Protein, Urine Quantitative 60.3 mg/dL (0.0-11.9)
[2024-03-27 17:35] LABS: Creatinine Urine 23.6 mg/dL (27.00-270.00)
== END ==
LOC: LAB SHORT 14:05 → LAB 14:05
PROVIDERS: Internal Medicine Nephrology
DX: N18.4 Chronic kidney disease, stage 4 (severe) (principal); N18.30 Chronic kidney disease, stage 3 unspecified; D63.1 Anemia in chronic kidney disease; N25.81 Secondary hyperparathyroidism of renal origin; E55.9 Vitamin D deficiency, unspecified; E29.1 Testicular hypofunction; R94.5 Abnormal results of liver function studies; R94.6 Abnormal results of thyroid function studies
CPT/HCPCS: 82043; 82570; 84156

== ENCOUNTER → 2024-03-27 | Outpatient (CLI) | payer MEDICARE ==
[2024-03-29 03:20] LABS: COMPLEMENT COMPONENT 3 130 mg/dL (90-180); COMPLEMENT COMPONENT 4 21 mg/dL (10-40)
[2024-03-29 15:56] LABS: DOUBLE-STRANDED DNA IGG ELISA 6 IU (0-24)
[2024-03-29 21:02] LABS: ANTINUCLEAR AB (ANA),HEP-2,IGG Detected (<1:80)
[2024-03-29 21:03] LABS: ANA PATTERN Nuclear Dot
[2024-03-30 07:30] LABS: SMITH (ENA) ANTIBODY, IGG 0 AU/mL (0-40); SMITH/RNP (ENA) AB, IGG 2 Units (0-19)
[2024-03-30 15:34] LABS: ALPHA 1 GLOBULIN 0.38 g/dL (0.19-0.46); ALPHA 2 GLOBULIN 0.74 g/dL (0.48-1.05); BETA GLOBULIN 0.78 g/dL (0.48-1.10); IMMUNOFIXATION REFLEX Not Done; TOTAL PROTEIN,SERUM 6.4 g/dL (6.3-8.2)
== END ==
LOC: LAB 14:22 → LAB SHORT 14:22
PROVIDERS: Internal Medicine Nephrology
DX: E55.9 Vitamin D deficiency, unspecified (principal); N18.30 Chronic kidney disease, stage 3 unspecified; N18.4 Chronic kidney disease, stage 4 (severe); D63.1 Anemia in chronic kidney disease; N25.81 Secondary hyperparathyroidism of renal origin; R76.9 Abnormal immunological finding in serum, unspecified; R94.5 Abnormal results of liver function studies; R94.6 Abnormal results of thyroid function studies
CPT/HCPCS: 82784; 83521; 84155; 84165; 86039; 86160; 86225; 86235; 86334

== ENCOUNTER → 2024-08-30 | Outpatient (CLI) | payer MEDICARE ==
[2024-08-30 14:13] LABS: Albumin, Blood 3.6 g/dL (3.4-5.0); Anion Gap 13 mmol/L (3-11); Blood Urea Nitrogen 62 mg/dL (8-24); Bun/Creatinine Ratio 23.3 (12.0-20.0); CO2, Blood 20 mmol/L (21-32); Calcium, Blood 10.2 mg/dL (8.5-10.1); Chloride, Blood 109 mmol/L (98-108); Creatinine, Blood 2.66 mg/dL (0.40-1.00); Glomerular Filtration Rate 18 (60-); Glucose, Blood 100 mg/dL (70-99); Phosphorus, Blood 4.5 mg/dL (2.5-4.9); Potassium, Blood 5.1 mmol/L (3.5-5.5); Sodium, Blood 137 mmol/L (136-145)
== END ==
LOC: LAB SHORT 13:30 → LAB 13:30
PROVIDERS: Internal Medicine Nephrology
DX: N18.6 End stage renal disease (principal)
CPT/HCPCS: 80069